=== PATIENT | female | born 1955 | race Caucasian/White ===

== ENCOUNTER 2017-04-20 15:59 | Emergency (ER) | payer MEDICAID ==
[2016-02-21 08:35] VITALS: BMI 27.2
[~2017-04-20 15:59] MED LIST: ADVAIR 500/501 DISK INH; BENAZEPRIL-HCTZ1 TA4 PO; COMBIVENT RESPIM4 GM INH; COREG 3.1253.125 MG PO; COREG12.5 MG PO; COREG6.25 MG PO; Chloraseptic Spray [BKC] TOPICAL; DEXILANT60 MG PO; FIBER THERAPY1368 GM PO; FISH OIL 1,0001 CA1 PO; FLAGYL500 MG PO; GARLIC1 CAP PO; HEMOCYTE PLUS C1 CAP PO; HYDRALAZINE HCL50 MG PO; K-DUR20 MEQ PO; LASIX20 MG PO; LASIX40 MG PO; LOTENSIN40 MG PO; NEXIUM40 MG PO; NITRO-DUR0.1 MG TRANSDERM; NITROQUICK0.4 MG SL; NITROSTAT0.4 MG SL; PLAVIX75 MG PO; PROBIOTIC1 EAC1 PO; REGLAN10 MG PO; SYNTHROID125 MCG PO; ULTRAM50 MG PO
[2017-04-20 16:32] LABS: BASOPHILS 0.3 % (0-2); EOSINOPHILS 1.3 % (0-7); HEMATOCRIT 48.3 % (36.0-48.0); HEMOGLOBIN 16.2 g/dL (12-16); IMMATURE GRANULOCYTES 0.2 % (0-5); LYMPHOCYTES 17.1 % (15-50); MCHC 33.5 g/dL (31.0-37.0); MCV 95.3 fL (80.0-100.0); MEAN PLATELET VOLUME 9.7 fL (7.4-10.4); MONOCYTES 5.4 % (2-11); NEUTROPHILS 75.7 % (40-80); PLATELET COUNT 248 10x3/uL (130-400); RBC 5.07 10x6/uL (4.00-5.40); WBC 11.5 10x3/uL (4.8-10.8)
[2017-04-20 16:46] LABS: ALBUMIN 3.6 g/dL (3.4-5.0); ANION GAP 13.6 mmol/L (8-16); BILIRUBIN - TOTAL 0.33 mg/dL (0.2-1.3); CALCIUM 9.2 mg/dL (8.5-10.1); CARBON DIOXIDE 25.4 mmol/L (21.0-32.0); PROTEIN - SERUM 7.7 g/dL (6.4-8.2)
== END 2017-04-20 17:12 | disposition left against medical advice (07) ==
LOC: D.ER 15:59
PROVIDERS: Emergency Medicine
DX: J45.901 Unspecified asthma with (acute) exacerbation (principal); F17.200 Nicotine dependence, unspecified, uncomplicated

== ENCOUNTER 2018-05-22 12:31 | Emergency (ER) | payer MEDICARE ==
[~2018-05-22] VITALS: Ht 154.9 cm; Wt 63.6 kg
[2018-05-22 12:45] VITALS: Ht 154.9 cm; Wt 63.6 kg
[2018-05-22 13:57] LABS: BASOPHILS 0.4 % (0-2); EOSINOPHILS 0.9 % (0-7); HEMATOCRIT 37.6 % (36.0-48.0); HEMOGLOBIN 12.8 g/dL (12-16); IMMATURE GRANULOCYTES 0.4 % (0-5); LYMPHOCYTES 19.7 % (15-50); MCH 31.9 pg (26.0-34.0); MCV 93.8 fL (80.0-100.0); MEAN PLATELET VOLUME 9.4 fL (7.4-10.4); MONOCYTES 8.7 % (2-11); NEUTROPHILS 69.9 % (40-80); RBC 4.01 10x6/uL (4.00-5.40); RDW 13.9 % (11.5-14.5); WBC 7.6 10x3/uL (4.8-10.8)
[2018-05-22 14:11] LABS: PLATELET COUNT 301 10x3/uL (130-400)
[2018-05-22 14:26] LABS: ALKALINE PHOSPHATASE 100 U/L (46-116); ALT (SGPT) 13 U/L (10-68); BILIRUBIN - TOTAL 0.13 mg/dL (0.2-1.3); CALC OSMOLALITY 285 mosm/kg (275-300); CALCIUM 8.9 mg/dL (8.5-10.1); CARBON DIOXIDE 29.7 mmol/L (21.0-32.0); CHLORIDE - SERUM 105 mmol/L (98-107); CREATININE - SERUM 1.1 mg/dL (0.6-1.3); POTASSIUM - SERUM 3.7 mmol/L (3.5-5.1); PROTEIN - SERUM 6.6 g/dL (6.4-8.2); SODIUM 143 mmol/L (136-145); UREA NITROGEN 16 mg/dL (7-18); eGFR NON AFRICAN AMERICAN 53 mL/min (90-120)
[2018-05-22 14:27] LABS: GLUCOSE 104 mg/dL (74-106)
[2018-05-22 14:36] LABS: PRO BNP 1240 pg/mL (0-125); TROPONIN-I < 0.017 ng/mL (0.000-0.060)
[2018-05-22 19:31] VITALS: BP 130/63
== END 2018-05-22 19:31 | disposition home or self-care (01) ==
LOC: D.ER 12:31
PROVIDERS: Family Medicine
DX: J44.1 Chronic obstructive pulmonary disease with (acute) exacerbation (principal); Z86.79 Personal history of other diseases of the circulatory system; I10 Essential (primary) hypertension; F17.200 Nicotine dependence, unspecified, uncomplicated

== ENCOUNTER → 2018-08-13 16:58 | Outpatient (CLI) | payer MEDICARE ==
[2018-05-22 12:45] VITALS: BMI 26.5
== END | disposition home or self-care (01) ==
LOC: D.MAMMO 11:30
DX: Z12.31 Encounter for screening mammogram for malignant neoplasm of breast (principal)

== ENCOUNTER → 2019-03-30 14:34 | Outpatient (CLI) | payer MEDICARE ==
[2018-05-22 12:45] VITALS: BMI 26.5
[2019-03-31 08:11] LABS: IMMUNOGLOBULIN A 276 mg/dL (87-352); IMMUNOGLOBULIN G 755 mg/dL (700-1600); IMMUNOGLOBULIN M 88 mg/dL (26-217)
[2019-04-02 03:07] LABS: IMMUNOGLOBULIN E 685 IU/mL (6-495)
== END | disposition home or self-care (01) ==
LOC: D.RT 01-30 15:00 → D.LAB 03-02 10:00 → D.RT 03-02 10:30 → D.LAB 14:34
PROVIDERS: ATTEND Internal Medicine Pulmonary Disease
DX: J45.909 Unspecified asthma, uncomplicated (principal)